=== PATIENT | male | born 1985 | race Caucasian/White ===

== ENCOUNTER 2024-01-31 17:17 | Observation (INO) ==
--- NOTE | 2024-01-31 18:01 | Emergency Department Note ---
Impression & Plan Traumatic hematoma of left lower leg, Fall from standing, Acute pain of left hip ED Provider Note HISTORY OF PRESENT ILLNESS: Patient is a 38-year-old male presenting with left hip pain. He reports that yesterday he was hiking when he slipped on some gravel and fell, landing on a large jagged rock and striking the left lateral part of his hip. He reports he was able to get up on his own and has been ambulatory since the fall. Reports he took 2 ibuprofen last night for some spasming pain. He states that about 2 hours ago while running errands, he developed acute pain of his left lateral hip. He states that he has been unable to walk in the last 2 hours or bear weight on his left hip secondary to pain. He is on Coumadin for history of factor V Leiden disorder. He denies any chest pain or shortness of breath. He did not strike his head or lose consciousness with the fall. He denies any numbness or tingling down his leg. Denies any bowel or bladder incontinence. ROS: as above PHYSICAL EXAM: Constitutional: Patient appears in no acute distress. GCS 15 HENT: Head: Normocephalic and atraumatic. Eyes: EOMI, PERRL Mouth/Throat: Mucous membranes moist. Neck: Trachea midline. Neck supple. No midline cervical spine tenderness to palpation. Cardiovascular: RRR, No murmurs, rubs or gallops. Intact distal pulses. Pulmonary/Chest: No respiratory distress. Breath sounds clear and equal bilaterally. No wheezes or rales. No chest wall tenderness to palpation. Abdominal: Abdomen soft, no tenderness, rebound or guarding. Musculoskeletal: No edema, tenderness or deformity noted. No significant ecchymosis to the pelvis. No laxity of the pelvis with palpation. Patient has reproducible tenderness to palpation of the left lateral hip. Patient is able to straight leg raise bilaterally. No open wounds or evidence of ecchymosis to the pelvis or buttock region. Skin: Warm and dry. No rash, erythema, pallor or cyanosis Psychiatric: Appropriate mood and affect for situation. Neurological: Alert and keenly responsive. CN II-XII grossly intact, moving all extremities equally and fully. MDM: - Vitals signs stable - History obtained via patient. History as above. - Chronic conditions affecting care: Factor V Leiden disorder - Differential diagnoses include, but are not limited to: Pelvic fracture; femur fracture; hematoma; retroperitoneal hematoma - Order placed for continuous cardiac monitoring. At this time, monitor showed rate of 77 bpm with normal sinus rhythm, per my interpretation. - External medical records reviewed. - Laboratory workup interpreted by myself showed normal WBC; stable hemoglobin (Hgb 13.8); elevated INR (2.3); stable electrolytes - Xray pelvis with left hip negative for acute fracture, per my interpretation. Radiology notes soft tissue swelling. - CT abdomen/pelvis with IV contrast shows acute intramuscular hematoma involving the gluteus medius and kun musculature measuring up to 20 cm in length. No active extravasation. - UA negative for infection - Given patient's anticoagulation use and large hematoma, will admit for serial hemoglobin monitoring. - Considered further CT imaging, including a CT of the chest, cervical spine and head. However, the patient is having no respiratory complaints and did not strike his head or lose consciousness. He had an isolated left hip injury that occurred over 24 hours ago. - Discussion was had with counseling case manager about patient's case and need for admission - Hospitalist, Dr. Davis, consulted for admission - Patient admitted to [facility] for further evaluation and management. ASSESSMENT AND PLAN: Diagnosis: Fall from standing; traumatic hematoma of left lower leg; acute pain of left hip Plan: Admit Past Med/Surg History Problem List (Updated 01/31/24 @ 21:50 by Marcelina Garcia MD) Acute pain of left hip (Acute) Fall from standing (Acute) Traumatic hematoma of left lower leg (Acute) Factor V Leiden Traumatic hematoma of left lower leg Dizziness (Acute) Lyme disease (Acute) Social History Smoking Status: Never smoker Preferred Language: Bengali Feels Safe at Home: Yes Allergies Allergies Allergy/AdvReac Type Severity Reaction Status Date / Time No Known Allergies Allergy Unverified 06/26/20 14:06 Home Meds Home Medications Medication Instructions Recorded Confirmed warfarin 1 mg tablet 2 mg PO WK 06/26/20 06/26/20 warfarin 4 mg tablet 4 mg PO [id number] 06/26/20 06/26/20 Previous Rx's Medication Instructions Recorded enoxaparin 120 mg/0.8 mL 120 mg (0.8 mL) subcut Q12H #16 mL 06/26/20 subcutaneous syringe (Lovenox) Results & Data (ED) Vital Signs Vital Signs - 24 hr 01/31/24 17:39 01/31/24 17:45 01/31/24 17:45 Temperature 36.8 C Temperature Source Temporal Artery Scan Pulse Rate 85 74 Pulse Rate [Apical] 68 Pulse Rate from SpO2 Sensor Pulse Rhythm [Apical] Regular Pulse Strength [Apical] Normal Respiratory Rate 18 18 18 Respiratory Effort / Characteristics Non-Labored Spontaneous Non-Labored Respiratory Depth Normal Normal Respiratory Pattern Regular Regular Blood Pressure 124/79 124/78 Blood Pressure [Right Arm] 124/78 Blood Pressure Mean 94 Blood Pressure Mean [Right Arm] 93 Blood Pressure Position [Right Arm] Pulse Oximetry 98 98 99 Oxygen Delivery Method Room Air Room Air Room Air Sepsis Recent Fever Within 48 Hours No Sepsis New/Unexplained Change in Mental Status No Sepsis Action Taken by Nursing No Action Required 01/31/24 17:45 01/31/24 18:00 01/31/24 18:00 Temperature Temperature Source Pulse Rate 71 80 Pulse Rate [Apical] Pulse Rate from SpO2 Sensor 77 Pulse Rhythm [Apical] Pulse Strength [Apical] Respiratory Rate 15 Respiratory Effort / Characteristics Respiratory Depth Respiratory Pattern Blood Pressure 124/78 Blood Pressure [Right Arm] Blood Pressure Mean 93 Blood Pressure Mean [Right Arm] Blood Pressure Position [Right Arm] Pulse Oximetry 98 Oxygen Delivery Method Room Air Sepsis Recent Fever Within 48 Hours Sepsis New/Unexplained Change in Mental Status Sepsis Action Taken by Nursing 01/31/24 18:21 01/31/24 18:27 01/31/24 18:30 Temperature Temperature Source Pulse Rate 74 71 Pulse Rate [Apical] Pulse Rate from SpO2 Sensor 73 70 Pulse Rhythm [Apical] Pulse Strength [Apical] Respiratory Rate 18 14 Respiratory Effort / Characteristics Respiratory Depth Respiratory Pattern Blood Pressure 114/80 110/74 Blood Pressure [Right Arm] Blood Pressure Mean 91 83 Blood Pressure Mean [Right Arm] Blood Pressure Position [Right Arm] Pulse Oximetry 99 99 Oxygen Delivery Method Room Air Sepsis Recent Fever Within 48 Hours Sepsis New/Unexplained Change in Mental Status Sepsis Action Taken by Nursing 01/31/24 18:39 01/31/24 19:00 01/31/24 19:26 Temperature Temperature Source Pulse Rate 67 71 71 Pulse Rate [Apical] Pulse Rate from SpO2 Sensor 67 71 Pulse Rhythm [Apical] Pulse Strength [Apical] Respiratory Rate 10 L 15 Respiratory Effort / Characteristics Respiratory Depth Respiratory Pattern Blood Pressure 125/87 Blood Pressure [Right Arm] Blood Pressure Mean 99 Blood Pressure Mean [Right Arm] Blood Pressure Position [Right Arm] Pulse Oximetry 98 99 Oxygen Delivery Method Room Air Sepsis Recent Fever Within 48 Hours Sepsis New/Unexplained Change in Mental Status Sepsis Action Taken by Nursing 01/31/24 19:30 01/31/24 20:00 01/31/24 21:00 Temperature Temperature Source Pulse Rate Pulse Rate [Apical] 69 73 71 Pulse Rate from SpO2 Sensor Pulse Rhythm [Apical] Regular Regular Regular Pulse Strength [Apical] Normal Normal Normal Respiratory Rate 18 16 18 Respiratory Effort / Characteristics Non-Labored Spontaneous Non-Labored Spontaneous Non-Labored Spontaneous Respiratory Depth Normal Normal Normal Respiratory Pattern Regular Regular Regular Blood Pressure Blood Pressure [Right Arm] 120/83 109/75 96/76 L Blood Pressure Mean Blood Pressure Mean [Right Arm] 95 86 82 Blood Pressure Position [Right Arm] Sitting Sitting Sitting Pulse Oximetry 97 97 100 Oxygen Delivery Method Room Air Room Air Room Air Sepsis Recent Fever Within 48 Hours Sepsis New/Unexplained Change in Mental Status Sepsis Action Taken by Nursing 01/31/24 21:00 Temperature Temperature Source Pulse Rate Pulse Rate [Apical] 77 Pulse Rate from SpO2 Sensor Pulse Rhythm [Apical] Regular Pulse Strength [Apical] Normal Respiratory Rate 16 Respiratory Effort / Characteristics Non-Labored Spontaneous Respiratory Depth Normal Respiratory Pattern Regular Blood Pressure Blood Pressure [Right Arm] 96/76 L Blood Pressure Mean Blood Pressure Mean [Right Arm] 82 Blood Pressure Position [Right Arm] Sitting Pulse Oximetry 100 Oxygen Delivery Method Room Air Sepsis Recent Fever Within 48 Hours Sepsis New/Unexplained Change in Mental Status Sepsis Action Taken by Nursing Laboratory Data 01/31/24 17:53 01/31/24 17:53 Lab Results 01/31/24 01/31/24 01/31/24 Range/Units 17:53 18:05 21:10 WBC 6.90 (4.8-10.8) K/ul RBC 4.35 L (4.70-6.10) M/uL Hgb 13.8 L (14.0-18.0) g/dl POC Hgb 13.6 L (14.0-18.0) g/dl Hct 38.6 L (42.0-52.0) % POC Hct 40 L (42-52) % MCV 88.7 (80.0-100.0) fL MCH 31.7 (25.0-34.0) pg MCHC 35.8 (32.0-36.0) g/dL RDW Std Deviation 36.9 (36.4-46.3) fL RDW Coeff of Murray 11.5 (11.5-14.5) % Plt Count 165 (130-400) K/uL MPV 11.1 (9.4-12.4) fL Immature Gran % (Auto) 0.3 % Neut % (Auto) 68.7 % Lymph % (Auto) 17.4 % [place] % (Auto) 10.7 % Eos % (Auto) 2.2 % Baso % (Auto) 0.7 % Neut # (Auto) 4.74 (1.40-6.50) K/uL Lymph # (Auto) 1.20 (1.20-3.40) K/uL [place] # (Auto) 0.74 H (0.11-0.59) K/uL Eos # (Auto) 0.15 (0.00-0.50) K/uL Baso # (Auto) 0.05 (0.00-0.20) K/uL Immature Gran # (Auto) 0.02 (0.01-0.20) K/uL PT 23.0 H (9.0-12.0) Seconds INR 2.3 H (0.9-1.1) POC Sodium 138 (135-144) mmol/L Sodium 136 (136-145) mmol/L POC Potassium 3.9 (3.3-5.0) mmol/L Potassium 3.9 (3.5-5.1) mmol/L POC Chloride 101 (101-112) mmol/L Chloride 102 (98-107) mmol/L Carbon Dioxide 26 (21-32) mmol/L POC Total CO2 24 (24-31) mmol/L Anion Gap 8 (3-11) POC Anion Gap 18.0 (16-25) mmol/L POC BUN 11 (7-18) mg/dl BUN 12 (6-23) mg/dl Creatinine 0.83 (0.6-1.4) mg/dl POC Creatinine 0.9 (0.6-1.3) mg/dl Est Cr Clr Drug Dosing 162.4 ml/min Est GFR ( Amer) 131.2 ml/min Est GFR (Non-Af Amer) 113.2 ml/min BUN/Creatinine Ratio 14.5 (10-20) Glucose 110 H (70-99(Fasting)) mg/dl POC Glucose (other) 108 H (70-99) mg/dl Calcium 9.0 (8.6-10.3) mg/dl POC Ioniz Calcium Frank 1.20 (1.12-1.32) mmol/l Total Bilirubin 0.7 (0.2-1.0) mg/dl AST 32 (13-39) U/L ALT 40 (7-52) U/L Alkaline Phosphatase 47 (34-104) U/L Total Protein 7.3 (6.0-8.3) gm/dl Albumin 4.4 (3.4-5.0) gm/dl Globulin 2.9 (2.5-4.0) gm/dl Albumin/Globulin Ratio 1.5 (0.9-2) Urine Color Yellow Urine Appearance Clear (Clear) Urine pH 7.0 (4.5-7.5) Ur Specific [place] 1.031 H (1.000-1.030) Urine Protein Negative (Negative) Urine Glucose (UA) Negative (Negative) Urine Ketones 1+ H (Negative) Urine Blood Negative (Negative) Urine Nitrite Negative (Negative) Urine Bilirubin Negative (Negative) Urine Urobilinogen Negative (Negative) Ur Leukocyte Esterase Negative (Negative) Administered Medications Discontinued Medications Ioversol (Optiray 320 100ml) 90 ml IV ONCE ONE Stop: 01/31/24 18:14 Last Admin: 01/31/24 18:13 Dose: 90 ml Documented By: CLARK Imaging Data Radiologist's Impression: Abdomen/Pelvis CT 01/31/24 17:[address] WITH IV CONTRAST CT DOSE: 1700.85 mGy.cm HISTORY: Acute left hip pain status post fall L hip pain s/p fall; on coumadin TECHNIQUE: Multiaxial CT images of the abdomen and pelvis were performed following the IV administration of 90 cc of Optiray, A dose lowering technique was utilized adhering to the principles of ALARA. COMPARISON STUDY: Pelvis and hip radiographs of same day FINDINGS: The lung bases are clear. Small calcified granuloma of the basal right lower lobe. The liver, spleen, gallbladder, pancreas, kidneys, and adrenal glands are within normal limits. No bowel wall thickening or obstruction. Small fat filled umbilical hernia. Normal appendix. Probable calcifications of the prostate. The urinary bladder wall thickening with partial distention. No acute fracture. There is an acute intramuscular hematoma within the left iliacus medius and kun musculature with ill-defined margins measuring up to approximately 20 cm in length. No evidence of active extravasation. IMPRESSION: 1. Acute intramuscular hematoma involves the gluteus medius and kun musculature measuring up to approximately 20 cm in length. No evidence of active extravasation on this phase of imaging. 2. No acute fracture or evidence of acute solid organ injury. ACT 112: Negative or not required by law. The above report was generated using voice recognition software. It may contain grammatical, syntax or spelling errors. Electronically signed by: Khoa Fofana M.D. 01/31/2024 7:20 PM Hip/Pelvis X-Ray 01/31/24 17:58 XR hip LT 2V w pelvis HISTORY: 38 years-old Male L hip pain s/p fall; trauma acute left hip pain status post fall COMPARISON: CT of same day TECHNIQUE: AP view of the pelvis with 2 views of the left hip FINDINGS: No acute fracture, dislocation or avascular necrosis. Soft tissue swelling of the lateral tissues. IMPRESSION: Soft tissue swelling without acute fracture or dislocation. ACT 112: Negative or not required by law. The above report was generated using voice recognition software. It may contain grammatical, syntax or spelling errors. Electronically signed by: Khoa Fofana M.D. 01/31/2024 6:28 PM Discharge Plan Visit Data Chief Complaint: Trauma Stated Complaint: FALL, LT HIP, IMMFLAMATION ED Provider: Marcelina Garcia Discharge Problem: Traumatic hematoma of left lower leg, Fall from standing, Acute pain of left hip Forms Stand Alone Forms: [facility] [employer] Prescriptions Prescriptions: No Action warfarin 4 mg tablet 4 mg PO [id number] warfarin 1 mg tablet 2 mg PO WK Rx Instructions: Take 2 tabs on in addition to the 4mg tablet enoxaparin [Lovenox] 120 mg/0.8 mL syringe 120 mg subcut Q12H Qty: 16 0RF Referrals Referrals: Dillan Bae MD [Primary Care Provider] -
[2024-01-31] MEDS: OPTIRAY 320 100ml IV ONE (18:13)
[2024-01-31 18:18] LABS: iSTAT Creatinine 0.9 mg/dl (0.6-1.3); iSTAT Hemoglobin 13.6 g/dl (14.0-18.0); iSTAT Ionized Calcium 1.2 mmol/l (1.12-1.32); iSTAT Potassium 3.9 mmol/L (3.3-5.0)
[2024-01-31 18:24] LABS: Basophils # (auto) 0.05 K/uL (0.00-0.20); Basophils % (auto) 0.7 %; Eosinophils # (auto) 0.15 K/uL (0.00-0.50); Eosinophils % (auto) 2.2 %; Hematocrit (blood only) 38.6 % (42.0-52.0); Hemoglobin 13.8 g/dl (14.0-18.0); Immature Granulocytes # (auto) 0.02 K/uL (0.01-0.20); Immature Granulocytes % (auto) 0.3 %; Lymphocytes % (auto) 17.4 %; Mean Corpuscular Hemoglobin 31.7 pg (25.0-34.0); Mean Corpuscular Hgb Conc 35.8 g/dL (32.0-36.0); Mean Corpuscular Volume 88.7 fL (80.0-100.0); Mean Platelet Volume 11.1 fL (9.4-12.4); Monocytes # (auto) 0.74 K/uL (0.11-0.59); Monocytes % (auto) 10.7 %; Neutrophils # (auto) 4.74 K/uL (1.40-6.50); Neutrophils % (auto) 68.7 %; Platelet Count 165 K/uL (130-400); RDW Coefficient of Variation 11.5 % (11.5-14.5); RDW Standard Deviation 36.9 fL (36.4-46.3); Red Blood Count 4.35 M/uL (4.70-6.10)
--- NOTE | 2024-01-31 18:29 | XRay Report ---
XR hip LT 2V w pelvis HISTORY: 38 years-old Male L hip pain s/p fall; trauma acute left hip pain status post fall COMPARISON: CT of same day TECHNIQUE: AP view of the pelvis with 2 views of the left hip FINDINGS: No acute fracture, dislocation or avascular necrosis. Soft tissue swelling of the lateral tissues. IMPRESSION: Soft tissue swelling without acute fracture or dislocation. ACT 112: Negative or not required by law. The above report was generated using voice recognition software. It may contain grammatical, syntax o r spelling errors. Electronically signed by: Khoa Fofana M.D. 01/31/2024 6:28 PM
[2024-01-31 18:36] LABS: Albumin Globulin Ratio 1.5 (0.9-2); Albumin Level 4.4 gm/dl (3.4-5.0); BUN Creatinine Ratio 14.5 (10-20); Bilirubin,Total 0.7 mg/dl (0.2-1.0); Creatinine Clr Calc Pharmacy 162.4 ml/min; Est GFR (African American) 131.2 ml/min; Est GFR (Non-African American) 113.2 ml/min; Globulin 2.9 gm/dl (2.5-4.0); Potassium 3.9 mmol/L (3.5-5.1); Total Protein 7.3 gm/dl (6.0-8.3)
[2024-01-31 18:45] LABS: INR 2.3 (0.9-1.1)
--- NOTE | 2024-01-31 19:22 | CT Scan Report ---
ABDOMEN AND PELVIS CT WITH IV CONTRAST CT DOSE: 1700.85 mGy.cm HISTORY: Acute left hip pain status post fall L hip pain s/p fall; on coumadin TECHNIQUE: Multiaxial CT images of the abdomen and pelvis were performed following the IV administrat ion of 90 cc of Optiray, A dose lowering technique was utilized adhering to the principles of ALARA. COMPARISON STUDY: Pelvis and hip radiographs of same day FINDINGS: The lung bases are clear. Small calcified granuloma of the basal right lower lobe. The live r, spleen, gallbladder, pancreas, kidneys, and adrenal glands are within normal limits. No bowel wall thickening or obstruction. Small fat filled umbilical hernia. Normal appendix. Probable calcificatio ns of the prostate. The urinary bladder wall thickening with partial distention. No acute fracture. T here is an acute intramuscular hematoma within the left iliacus medius and kun musculature with i ll-defined margins measuring up to approximately 20 cm in length. No evidence of active extravasation . IMPRESSION: 1. Acute intramuscular hematoma involves the gluteus medius and kun musculature measuring up to a pproximately 20 cm in length. No evidence of active extravasation on this phase of imaging. 2. No acute fracture or evidence of acute solid organ injury. ACT 112: Negative or not required by law. The above report was generated using voice recognition software. It may contain grammatical, syntax o r spelling errors. Electronically signed by: Khoa Fofana M.D. 01/31/2024 7:20 PM
--- NOTE | 2024-01-31 21:13 | History & Physical Report ---
Date of Service January 31, 2024 Assessment & Plan (1) Traumatic hematoma of left lower leg: Plan: Admit to med/tele Currently stable nontoxic-appearing Presented to the ED due to progressive pain and amatory dysfunction of the left lower extremity after falling on his left hip during a hike on 01/30/2024. No acute fractures noted on x-ray of the pelvis or CT of the abdomen/pelvis with IV contrast Patient was noted to have an acute intramuscular hematoma involving the gluteus medius and kun musculature measuring up to approximately 20 cm in length was without signs of active extravasation We were asked to admit for observation as the patient is on warfarin for his history of factor V Leiden and multiple previous DVT/PEs Hemoglobin is currently 13, blood consent has been obtained and will order type/screen Will monitor CBC every 6 hours overnight INR currently 2.3, we will hold off on warfarin reversal at this time due to patient's significant history of clotting and current stability If any significantly worsening symptoms or concerns for progression of hematoma will rescan the area overnight Will consult orthopedics the following case hematoma evacuation would be requiring Bilateral SCDs for DVT prophylaxis for now Regular diet A.m. CMP, mag, PT/INR with (2) Factor V Leiden: Plan: Hold warfarin for now Would restart anticoagulation DAQUAN once patient is safe from a bleeding perspective Plan The patient was discussed with Dr. Davis at time of admission History of Present Illness Chief Complaint: Fall, left hip pain/swelling Primary Care Provider: Dillan Bae MD Dillan is a 38-year-old male with a past medical history significant for factor V Leiden with a history of previous DVT/PE now on warfarin who presented to [facility] ED on 01/31/2024 due to left hip pain/swelling and ambulatory dysfunction after falling onto his left hip on 01/30/2024. Patient reportedly was hiking on 01/30/2024 and reportedly fell landing his left hip onto a [place]. He reportedly felt fine after the incident and had been able to ambulate without issue. He was walking earlier today while completing some errands when he had acute onset of left hip pain and ambulatory dysfunction. Patient remained stable in the ED. Labs were significant for hemoglobin of 13.8 (down from 16 as of 06/26/2020), INR of 2.3. X-ray of the left hip/pelvis noted soft tissue swelling but no acute trauma. CT of the abdomen pelvis with IV contrast was read as an acute intramuscular hematoma involving the gluteus medius and kun musculature measuring up to approximately 20 cm in length. No evidence of active extravasation. No acute fracture or evidence of acute solid organ injury. Patient was sitting in bed in no acute distress at time of exam. Confirms the above history. States that his first DVT and PE were approximately 12 years ago in the right lower extremity. States that it was an extensive DVT requiring Venojet procedure with Dr. Fritz. Patient was given a trial off anticoagulation after his initial blood clots were treated and he had recurrent DVT within the first week off anticoagulation. States that he took a dose of ibuprofen last night before going to bed. Last dose of warfarin was last evening. States his pain got acutely worse this afternoon while ambulating. Denies numbness, tingling, or pallor of left lower extremity. Pain is currently controlled. Please refer to Dr. Davis's attestation for any changes to the treatment plan Allergies Allergy/AdvReac Type Severity Reaction Status Date / Time No Known Allergies Allergy Unverified 06/26/20 14:06 Home Medications Medication Instructions Recorded Confirmed Type warfarin 5 mg tablet 5 mg PO [id number] 01/31/24 01/31/24 History Past Med/Surg History Problem List Acute pain of left hip (Acute) Fall from standing (Acute) Traumatic hematoma of left lower leg (Acute) Factor V Leiden Traumatic hematoma of left lower leg Dizziness (Acute) Lyme disease (Acute) Social History Smoking Status: Never smoker Second Hand Exposure: No; Hx Alcohol Use: Yes Hx Substance Use: No Preferred Language: Guyanese Communication Ability: Effective Property Technician Required: No Beliefs That Will Affect Care: None Current Living Situation: Family Current Living Situation Comment: lives with brother Other Information That Helps Us Care for You: No Feels Safe at Home: Yes Safety Concerns: Feels Safe At This Time Assistive Devices: Glasses Review of Systems Review of Systems: All systems reviewed & are unremarkable except as noted in HPI & below Physical Exam Physical Exam: Physical Exam: General: In no acute distress, stated age, well-nourished, good hygiene HEENT: Normocephalic, atraumatic, no scleral icterus, pupils around round, symmetrical, and reactive to light, moist mucus membranes, trachea midline, no thyromegaly Chest/Pulm: No respiratory distress, symmetrical chest expansion, clear breath sounds throughout Cardiac: RRR, no murmurs noted Abdomen: Negative for ascites and bruising, normoactive bowel sounds, soft, non-tender to palpation throughout Musculoskeletal: No acute trauma or acute bruising on inspection and palpation of the bilateral lower extremities. Patient is significantly tender on palpation of the left posterior lower extremity and buttocks. Extremities: Radial, dorsalis pedis, and posterior tibial pulses are intact and symmetrical, no edema noted in the BL LE's Skin: Patient currently without signs of bruising on inspection of the of the posterior left lower extremity and buttocks Neuro: Alert and oriented to person, place, month, year, and president, no focal defects, Intact and symmetrical sensation in the bilateral lower extremities no tremors noted Psych: No acute distress, calm and cooperative during the exam Results & Data Results & Data Vital Signs (Past 12 Hours) Vital Signs Temp Pulse Pulse Resp BP BP Pulse Ox 01/31/24 20:00 73 16 109/75 97 01/31/24 19:30 69 18 120/83 97 01/31/24 19:26 71 01/31/24 19:00 71 15 125/87 99 01/31/24 18:39 67 10 L 98 01/31/24 18:30 110/74 01/31/24 18:27 71 14 99 01/31/24 18:21 74 18 114/80 99 01/31/24 18:00 80 15 124/78 98 01/31/24 18:00 71 01/31/24 17:45 01/31/24 17:45 68 18 124/78 99 01/31/24 17:45 74 18 124/78 98 01/31/24 17:39 36.8 C 85 18 124/79 98 O2 Del Method 01/31/24 20:00 Room Air 01/31/24 19:30 Room Air 01/31/24 19:26 01/31/24 19:00 Room Air 01/31/24 18:39 01/31/24 18:30 01/31/24 18:27 01/31/24 18:21 Room Air 01/31/24 18:00 01/31/24 18:00 01/31/24 17:45 Room Air 01/31/24 17:45 Room Air 01/31/24 17:45 Room Air 01/31/24 17:39 Room Air Laboratory Results Abnormal lab results 01/31/24 01/31/24 01/31/24 Range/Units 17:53 18:05 21:10 RBC 4.35 L (4.70-6.10) M/uL Hgb 13.8 L (14.0-18.0) g/dl POC Hgb 13.6 L (14.0-18.0) g/dl Hct 38.6 L (42.0-52.0) % POC Hct 40 L (42-52) % [place] # (Auto) 0.74 H (0.11-0.59) K/uL PT 23.0 H (9.0-12.0) Seconds INR 2.3 H (0.9-1.1) Glucose 110 H (70-99(Fasting)) mg/dl POC Glucose (other) 108 H (70-99) mg/dl Ur Specific [place] 1.031 H (1.000-1.030) Urine Ketones 1+ H (Negative) Diagnostic Findings Abdomen/Pelvis CT 01/31/24 17:[address] WITH IV CONTRAST CT DOSE: 1700.85 mGy.cm HISTORY: Acute left hip pain status post fall L hip pain s/p fall; on coumadin TECHNIQUE: Multiaxial CT images of the abdomen and pelvis were performed following the IV administration of 90 cc of Optiray, A dose lowering technique was utilized adhering to the principles of ALARA. COMPARISON STUDY: Pelvis and hip radiographs of same day FINDINGS: The lung bases are clear. Small calcified granuloma of the basal right lower lobe. The liver, spleen, gallbladder, pancreas, kidneys, and adrenal glands are within normal limits. No bowel wall thickening or obstruction. Small fat filled umbilical hernia. Normal appendix. Probable calcifications of the prostate. The urinary bladder wall thickening with partial distention. No acute fracture. There is an acute intramuscular hematoma within the left iliacus medius and kun musculature with ill-defined margins measuring up to approximately 20 cm in length. No evidence of active extravasation. IMPRESSION: 1. Acute intramuscular hematoma involves the gluteus medius and kun musculature measuring up to approximately 20 cm in length. No evidence of active extravasation on this phase of imaging. 2. No acute fracture or evidence of acute solid organ injury. ACT 112: Negative or not required by law. The above report was generated using voice recognition software. It may contain grammatical, syntax or spelling errors. Electronically signed by: Khoa Fofana M.D. 01/31/2024 7:20 PM Hip/Pelvis X-Ray 01/31/24 17:58 XR hip LT 2V w pelvis HISTORY: 38 years-old Male L hip pain s/p fall; trauma acute left hip pain status post fall COMPARISON: CT of same day TECHNIQUE: AP view of the pelvis with 2 views of the left hip FINDINGS: No acute fracture, dislocation or avascular necrosis. Soft tissue swelling of the lateral tissues. IMPRESSION: Soft tissue swelling without acute fracture or dislocation. ACT 112: Negative or not required by law. The above report was generated using voice recognition software. It may contain grammatical, syntax or spelling errors. Electronically signed by: Khoa Fofana M.D. 01/31/2024 6:28 PM Code Status & VTE Plan Code Status Full code VTE Prophylaxis Plan VTE Prophylaxis will be ordered: Yes Supervising Physician Co-Signing Physician Notes Patient seen and examined, chart reviewed, case discussed with ROGELIO Boucher and I agree with the assessment and plan as above. In brief, patient presenting with acute intramuscular hematoma of the left buttock following a ground level fall while hiking. Patient is on Coumadin for history of Factor V Leiden with recurrent VTE. INR=2.3 Patient is afebrile, HD stable and non-toxic in appearance Skin -small superficial bruise on left hip. No palpable hematoma on exam HEENT - MMM, Neck supple Heart - +S1/S2, regular, no m/r/g Lungs - CTA Abd - soft, NT/ND Labs and images reviewed Assessment/plan - acute intramuscular hematoma in patient on Coumadin anticoagulation. No active extravasation noted on imaging. -Will hold Coumadin -Trend H/H -Ortho consultation appreciated for possible drainage -Remainder as above PG Care Time/CCT Total # of Minutes Spent Total Time Spent with Patient: Total time spent is greater than 50% in coordination of care (as documented) at patient's floor/unit and/or counseling patient: [place] [address] INT INP/OBS CARE MIN Patient Type New Medical Decision Making High Complexity Diagnoses Traumatic hematoma of left lower leg S80.12XA Factor V Leiden D68.51
[2024-01-31 21:20] LABS: Appearance Urine Clear (Clear); Bilirubin Urine Negative (Negative); Blood Urine Negative (Negative); Color Urine Yellow; Glucose Urine UA Negative (Negative); Ketones Urine 1+ (Negative); Leukocyte Esterase Urine Negative (Negative); Nitrite Urine Negative (Negative); Protein Urine Negative (Negative); Specific Gravity Urine 1.031 (1.000-1.030); Urobilinogen Urine Negative (Negative)
[2024-01-31] MEDS ORDERED: ACETAMINOPHEN 325 MG TAB PO PRN (21:30)
--- OUTSIDE RECORDS SUMMARY | 2024-01-31 23:12 | External Medical Summary | Continuity of Care Document ---
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) - 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) - Discharge Disposition: Home or Self Care Attending Physician: MD García Mark B Referring Physician: MD García Mark B Allergies, Adverse Reactions, Alerts No Known Allergies Immunizations Given and Recorded Vaccine Date Status Refusal Reason tetanus/diphtheria/pertuss, acel (Tdap) 04/03/22 G iven yellow fever vaccine 10/10/18 Given typhoid vaccine, live 09/02/18 Recorded hepatitis A adult vaccine 09/02/18 Recorded tetanus toxoids-diphtheria, Td (Adult) 12/21/09 Re corded tetanus toxoids-diphtheria, Td (Adult) 12/22/02 Re corded hepatitis B pediatric vaccine 08/25/98 Recorded hepatitis B pediatric vaccine 06/01/97 Recorded hepatitis B pediatric vaccine 04/25/97 Recorded diphtheria/tetanus/pertuss, acel (DTaP) 02/16/92 R ecorded diphtheria/tetanus/pertuss, acel (DTaP) 07/29/90 R ecorded diphtheria/tetanus/pertuss, acel (DTaP) 01/22/89 R ecorded diphtheria/tetanus/pertuss, acel (DTaP) 07/24/88 R ecorded diphtheria/tetanus/pertuss, acel (DTaP) 05/01/88 R ecorded poliovirus vaccine, inactivated 02/16/92 Recorded poliovirus vaccine, inactivated 02/25/90 Recorded poliovirus vaccine, inactivated 07/24/88 Recorded poliovirus vaccine, inactivated 05/01/88 Recorded measles/mumps/rubella virus vaccine 01/16/92 Recor ded measles/mumps/rubella virus vaccine 01/22/89 Recor ded haemophilus b conj (PRP-OMP) vaccine 02/25/90 Enrico rded Medications warfarin 5 mg oral tablet Start: 06/06/23 10:16:00 AM EST, See Instructions, Disp# 100 tab, Refills: 10, 1 tab 6 days a week, and 1.5 tabs one day a week., Pharmacy: [id number] Start Date: 06/06/23 Status: Ordered Problem List Condition Confirmation Course Effective Dates Status H ealth Status Informant Anticoagulated on warfarin Confirmed Active Anticoagulation goal of INR 2 to 3 Confirmed Active Tinea Confirmed Active Dull chest pain Confirmed Active Factor V deficiency Confirmed Active History of DVT (deep vein thrombosis) Confirmed Active History of pulmonary embolism Confirmed Active Calf pain Confirmed Active Encounter for counseling for travel Confirmed Active Prothrombin [id number] mutation Confirmed Active Weight disorder Confirmed Active Procedures Procedure Date Related Diagnosis Body Site Status Plain X-ray of left wrist 1 04/03/22 Completed Chest x-ray 2 12/04/17 Completed Jaw surgery Completed 1Impression: 1. No acute bony abnormality is identified. 2. Negative ulnar variance with degenerative change at this distal radioulnar joint. 2no active disease in the chest Results Laboratory List Name Date Prothrombin Time w/ INR (PROTIME WITH IN R) 01/03/24 Request to FAX Report (First Location) ( ACC NO TO BE FAXED) 01/03/24 Most recent to oldest [Reference Range]: 1 Phone No [phone] (01/03/24 3:10 PM) Faxed on: 01/04/24 08:17 (01/03/24 3:10 PM) INR [0.9-1.1] 2.4 2 *HI* (01/03/24 3:10 PM) PT [12.0-14.2 seconds] 26.1 seconds *HI* (01/03/24 3:10 PM) 1Result Comment: Testing Performed By: Dept of Pathology [facility] [address] [place] [address] 2Result Comment: Suggested therapeutic range for low-intensity Coumadin therapy for venous thromboembolism is INR 2.0-3.0 (ex: atrial fibrillation, history of TIA/stroke). For high risk patients, the suggested therapeutic range is INR 2.5-3.5 (ex: mechanical prosthetic valves). Testing Performed By: Dept of Pathology [facility], [address] [place] [address] Social History Social History Type Response Smoking Status Never smoked cigaret martha Sex Male Sex Representation Male (finding) Patient Care team information Care Team Personnel Name: MICHAEL Villagomez Tara Position: Nurse Pract - Family Med Member Role: Lifetime Relationship Address: [address] [place] [id number] [place] Name: Dina Burrows Amy Position: Pharmacist Schedule II Member Role: Pharmacy - Lifetime Address: [facility] [address] [place] [address] [place] Name: Dina Alejandra Todd Position: Pharmacist Schedule II Member Role: Pharmacy - Lifetime Address: [address] [place] [id number] [place] Name: Dina Wise Francis Position: Pharmacist Schedule II Member Role: Pharmacy - Lifetime Address: [facility] [address] [place] [address] [place] Name: Dina Kowalski Paul T Position: Pharmacist Schedule II Member Role: Pharmacy - Lifetime Address: [facility] [address] [place] [address] [place] Care Team Related Persons Name: CE HERNÁNDEZ
[2024-02-01 00:42] LABS: Hematocrit (blood only) 35.7 % (42.0-52.0); Hemoglobin 12.5 g/dl (14.0-18.0); Mean Corpuscular Hemoglobin 31.3 pg (25.0-34.0); Mean Corpuscular Volume 89.5 fL (80.0-100.0); Mean Platelet Volume 11.2 fL (9.4-12.4); Platelet Count 163 K/uL (130-400); RDW Coefficient of Variation 11.5 % (11.5-14.5); RDW Standard Deviation 37.2 fL (36.4-46.3); Red Blood Count 3.99 M/uL (4.70-6.10)
[2024-02-01 08:31] LABS: Albumin Globulin Ratio 1.4 (0.9-2); Albumin Level 3.9 gm/dl (3.4-5.0); BUN Creatinine Ratio 9.9 (10-20); Bilirubin,Total 0.7 mg/dl (0.2-1.0); Calcium 8.3 mg/dl (8.6-10.3); Creatinine Clr Calc Pharmacy 168.1 ml/min; Est GFR (African American) 132.5 ml/min; Est GFR (Non-African American) 114.3 ml/min; Globulin 2.8 gm/dl (2.5-4.0); Magnesium 1.9 mg/dl (1.7-2.4); Potassium 4.1 mmol/L (3.5-5.1); Total Protein 6.7 gm/dl (6.0-8.3)
[2024-02-01 08:38] LABS: Hematocrit (blood only) 34.6 % (42.0-52.0); Hemoglobin 12.4 g/dl (14.0-18.0); Mean Corpuscular Hgb Conc 35.8 g/dL (32.0-36.0); Mean Corpuscular Volume 89.4 fL (80.0-100.0); Mean Platelet Volume 11.6 fL (9.4-12.4); Platelet Count 168 K/uL (130-400); RDW Coefficient of Variation 11.6 % (11.5-14.5); RDW Standard Deviation 37.4 fL (36.4-46.3); Red Blood Count 3.87 M/uL (4.70-6.10); White Blood Count 6.93 K/ul (4.8-10.8)
[2024-02-01 08:46] LABS: INR 2.2 (0.9-1.1); Prothrombin Time 22.6 Seconds (9.0-12.0)
--- NOTE | 2024-02-01 10:39 | Orthopedic Consultation ---
Date of Consultation February 01, 2024 Assessment & Plan (1) Traumatic hematoma of left lower leg: Weightbearing as tolerated Ice to the easy wrap Hold Coumadin for the next 3 days Pain control with p.o. medication Elevate left lower extremity when nonambulatory Will treat this hematoma conservatively Patient will need a 2-week follow-up in our clinic With questions contact [facility] orthopedics at [phone] Supervising Physician Co-Signing Physician Notes I saw and examined the patient, reviewed his imaging studies, formulated the above plan and performed the substantive portion of the visit. Agree with above note. Needs to hold coumadin for at least 3 days to decrease risk of hematoma enlarging. Ice and tylenol for pain. WBAT. Follow-up with PA in 2 weeks. 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 Patient reportedly was hiking on 01/30/2024 and reportedly fell landing his left hip onto a [place]. He reportedly felt fine after the incident and had been able to ambulate without issue. He was walking earlier today while completing some errands when he had acute onset of left hip pain and ambulatory dysfunction. Patient remained stable in the ED. Labs were significant for hemoglobin of 13.8 (down from 16 as of 06/26/2020), INR of 2.3. X-ray of the left hip/pelvis noted soft tissue swelling but no acute trauma. CT of the abdomen pelvis with IV contrast was read as an acute intramuscular hematoma involving the gluteus medius and kun musculature measuring up to approximately 20 cm in length. No evidence of active extravasation. No acute fracture or evidence of acute solid organ injury. Patient was sitting in bed in no acute distress at time of exam. Confirms the above history. States that his first DVT and PE were approximately 12 years ago in the right lower extremity. States that it was an extensive DVT requiring Venojet procedure with Dr. Simoni. Patient was given a trial off anticoagulation after his initial blood clots were treated and he had recurrent DVT within the first week off anticoagulation. States that he took a dose of ibuprofen last night before going to bed. Last dose of warfarin was last eveni ng. States his pain got acutely worse this afternoon while ambulating. Denies numbness, tingling, or pallor of left lower extremity. Pain is currently controlled. Allergies Allergy/AdvReac Type Severity Reaction Status Date / Time No Known Allergies Allergy Unverified 06/26/20 14:06 Home Medications Medication Instructions Recorded Confirmed Type warfarin 5 mg tablet 5 mg PO 6XWK 01/31/24 01/31/24 History Patient History Social History Smoking Status: Never smoker Second Hand Exposure: No; Hx Alcohol Use: Yes Hx Substance Use: No Preferred Language: Kosovan Communication Ability: Effective Vba Programmer Required: No Beliefs That Will Affect Care: None Current Living Situation: Family Current Living Situation Comment: lives with brother Other Information That Helps Us Care for You: No Feels Safe at Home: Yes Safety Concerns: Feels Safe At This Time Assistive Devices: Glasses Review of Systems Review of Systems: All systems reviewed & are unremarkable except as noted in Subjective Physical Exam Physical Exam: Left lower extremity: Patient has visible edema over the left buttocks with palpable softness and tenderness to palpation. He is able to perform active straight leg raise test. He is able to actively dorsi and plantarflex his foot. He is able to actively flex his hip to 90 degrees without significant discomfort. He has no pain with external rotation to 50 degrees but does feel some tension over the posterior hip with internal rotation to 15 degrees. His peripheral pulses are 2+. His capillary fill is less than 2 seconds. His calf is soft and supple nontender to palpation. He is neurovascularly intact in the left lower extremity. Results & Data Vital Signs (Past 12 Hours) Vital Signs Temp Pulse Pulse Pulse Resp BP Pulse Ox 02/01/24 07:29 37.1 C 74 18 108/74 97 02/01/24 07:11 71 02/01/24 04:18 36.8 C 71 16 113/79 97 02/01/24 00:06 76 02/01/24 00:05 37.5 C 80 16 117/78 97 01/31/24 23:00 81 18 111/79 98 O2 Del Method 02/01/24 07:29 Room Air 02/01/24 07:11 02/01/24 04:18 Room Air 02/01/24 00:06 02/01/24 00:05 Room Air 01/31/24 23:00 Room Air Diagnostic Findings Laboratory Results WBC 6.93 K/ul (4.8-10.8) 02/01/24 07:50 RBC 3.87 M/uL (4.70-6.10) L 02/01/24 07:50 Hgb 12.4 g/dl (14.0-18.0) L 02/01/24 07:50 POC Hgb 13.6 g/dl (14.0-18.0) L 01/31/24 18:05 Hct 34.6 % (42.0-52.0) L 02/01/24 07:50 POC Hct 40 % (42-52) L 01/31/24 18:05 MCV 89.4 fL (80.0-100.0) 02/01/24 07:50 MCH 32.0 pg (25.0-34.0) 02/01/24 07:50 MCHC 35.8 g/dL (32.0-36.0) 02/01/24 07:50 RDW Std Deviation 37.4 fL (36.4-46.3) 02/01/24 07:50 RDW Coeff of Murray 11.6 % (11.5-14.5) 02/01/24 07:50 Plt Count 168 K/uL (130-400) 02/01/24 07:50 MPV 11.6 fL (9.4-12.4) 02/01/24 07:50 Immature Gran % (Auto) 0.3 % 01/31/24 17:53 Neut % (Auto) 68.7 % 01/31/24 17:53 Lymph % (Auto) 17.4 % 01/31/24 17:53 Canadian % (Auto) 10.7 % 01/31/24 17:53 Eos % (Auto) 2.2 % 01/31/24 17:53 Baso % (Auto) 0.7 % 01/31/24 17:53 Neut # (Auto) 4.74 K/uL (1.40-6.50) 01/31/24 17:53 Lymph # (Auto) 1.20 K/uL (1.20-3.40) 01/31/24 17:53 Canadian # (Auto) 0.74 K/uL (0.11-0.59) H 01/31/24 17:53 Eos # (Auto) 0.15 K/uL (0.00-0.50) 01/31/24 17:53 Baso # (Auto) 0.05 K/uL (0.00-0.20) 01/31/24 17:53 Immature Gran # (Auto) 0.02 K/uL (0.01-0.20) 01/31/24 17:53 PT 22.6 Seconds (9.0-12.0) H 02/01/24 07:50 INR 2.2 (0.9-1.1) H 02/01/24 07:50 POC Sodium 138 mmol/L (135-144) 01/31/24 18:05 Sodium 135 mmol/L (136-145) L 02/01/24 07:50 POC Potassium 3.9 mmol/L (3.3-5.0) 01/31/24 18:05 Potassium 4.1 mmol/L (3.5-5.1) 02/01/24 07:50 POC Chloride 101 mmol/L (101-112) 01/31/24 18:05 Chloride 103 mmol/L (98-107) 02/01/24 07:50 Carbon Dioxide 27 mmol/L (21-32) 02/01/24 07:50 POC Total CO2 24 mmol/L (24-31) 01/31/24 18:05 Anion Gap 5 (3-11) 02/01/24 07:50 POC Anion Gap 18.0 mmol/L (16-25) 01/31/24 18:05 POC BUN 11 mg/dl (7-18) 01/31/24 18:05 BUN 8 mg/dl (6-23) 02/01/24 07:50 Creatinine 0.81 mg/dl (0.6-1.4) 02/01/24 07:50 POC Creatinine 0.9 mg/dl (0.6-1.3) 01/31/24 18:05 Est Cr Clr Drug Dosing 168.1 ml/min 02/01/24 07:50 Est GFR ( Amer) 132.5 ml/min 02/01/24 07:50 Est GFR (Non-Af Amer) 114.3 ml/min 02/01/24 07:50 BUN/Creatinine Ratio 9.9 (10-20) L 02/01/24 07:50 Glucose 133 mg/dl (70-99(Fasting)) H 02/01/24 07:50 POC Glucose (other) 108 mg/dl (70-99) H 01/31/24 18:05 Calcium 8.3 mg/dl (8.6-10.3) L 02/01/24 07:50 POC Ioniz Calcium Frank 1.20 mmol/l (1.12-1.32) 01/31/24 18:05 Magnesium 1.9 mg/dl (1.7-2.4) 02/01/24 07:50 Total Bilirubin 0.7 mg/dl (0.2-1.0) 02/01/24 07:50 AST 25 U/L (13-39) 02/01/24 07:50 ALT 32 U/L (7-52) 02/01/24 07:50 Alkaline Phosphatase 41 U/L (34-104) 02/01/24 07:50 Total Protein 6.7 gm/dl (6.0-8.3) 02/01/24 07:50 Albumin 3.9 gm/dl (3.4-5.0) 02/01/24 07:50 Globulin 2.8 gm/dl (2.5-4.0) 02/01/24 07:50 Albumin/Globulin Ratio 1.4 (0.9-2) 02/01/24 07:50 Urine Color Yellow 01/31/24 21:10 Urine Appearance Clear (Clear) 01/31/24 21:10 Urine pH 7.0 (4.5-7.5) 01/31/24 21:10 Ur Specific [place] 1.031 (1.000-1.030) H 01/31/24 21:10 Urine Protein Negative (Negative) 01/31/24 21:10 Urine Glucose (UA) Negative (Negative) 01/31/24 21:10 Urine Ketones 1+ (Negative) H 01/31/24 21:10 Urine Blood Negative (Negative) 01/31/24 21:10 Urine Nitrite Negative (Negative) 01/31/24 21:10 Urine Bilirubin Negative (Negative) 01/31/24 21:10 Urine Urobilinogen Negative (Negative) 01/31/24 21:10 Ur Leukocyte Esterase Negative (Negative) 01/31/24 21:10 Blood Type A Positive 01/31/24 17:53 Antibody Screen NEGATIVE 01/31/24 17:53 Impressions Abdomen/Pelvis CT 01/31/24 17:[address] WITH IV CONTRAST CT DOSE: 1700.85 mGy.cm HISTORY: Acute left hip pain status post fall L hip pain s/p fall; on coumadin TECHNIQUE: Multiaxial CT images of the abdomen and pelvis were performed follo wing the IV administration of 90 cc of Optiray, A dose lowering technique was utilized adhering to the principles of ALARA. COMPARISON STUDY: Pelvis and hip radiographs of same day FINDINGS: The lung bases are clear. Small calcified granuloma of the basal right lower lobe. The liver, spleen, gallbladder, pancreas, kidneys, and adrenal glands are within normal limits. No bowel wall thickening or obstruction. Small fat filled umbilical hernia. Normal appendix. Probable calcifications of the prostate. The urinary bladder wall thickening with partial distention. No acute fracture. There is an acute intramuscular hematoma within the left iliacus medius and kun musculature with ill-defined margins measuring up to approximately 20 cm in length. No evidence of active extravasation. IMPRESSION: 1. Acute intramuscular hematoma involves the gluteus medius and kun musculature measuring up to approximately 20 cm in length. No evidence of active extravasation on this phase of imaging. 2. No acute fracture or evidence of acute solid organ injury. ACT 112: Negative or not required by law. The above report was generated using voice recognition software. It may contain grammatical, syntax or spelling errors. Electronically signed by: Khoa Fofana M.D. 01/31/2024 7:20 PM Hip/Pelvis X-Ray 01/31/24 17:58 XR hip LT 2V w pelvis HISTORY: 38 years-old Male L hip pain s/p fall; trauma acute left hip pain status post fall COMPARISON: CT of same day TECHNIQUE: AP view of the pelvis with 2 views of the left hip FINDINGS: No acute fracture, dislocation or avascular necrosis. Soft tissue swelling of the lateral tissues. IMPRESSION: Soft tissue swelling without acute fracture or dislocation. ACT 112: Negative or not required by law. The above report was generated using voice recognition software. It may contain grammatical, syntax or spelling errors. Electronically signed by: Khoa Fofana M.D. 01/31/2024 6:28 PM
[2024-02-01 12:02] LABS: Hematocrit (blood only) 34.1 % (42.0-52.0); Hemoglobin 12.2 g/dl (14.0-18.0); Mean Corpuscular Hgb Conc 35.8 g/dL (32.0-36.0); Mean Corpuscular Volume 89.5 fL (80.0-100.0); Mean Platelet Volume 11.3 fL (9.4-12.4); Platelet Count 154 K/uL (130-400); RDW Coefficient of Variation 11.5 % (11.5-14.5); RDW Standard Deviation 37.3 fL (36.4-46.3); Red Blood Count 3.81 M/uL (4.70-6.10); White Blood Count 7.11 K/ul (4.8-10.8)
--- NOTE | 2024-02-01 13:57 | Hospitalist Progress Note ---
Date of Service February 01, 2024 Assessment & Plan (1) Traumatic hematoma of left lower leg: Plan: 38-year-old man chronically anticoagulated on warfarin for history of factor V Leiden and VTE's who fell on his left buttock 2 days prior to admission while on a hike. Next day he had abrupt increase in pain of left buttock as well as swelling. Found to have 20 cm gluteus muscle hematoma. Consulted orthopedics, reviewed recommendations in note continue conservative treatment for now, continue holding warfarin monitor hemoglobin symptoms and vital signs will reduce reduce frequency of hemoglobin checks, next 1 tonight then in the morning unless clinical status changes (2) Factor V Leiden: Plan: Hold warfarin for now agree holding 3 days seems prudent approach Admission and Anticipated Discharge Date Admission Date: January 31, 2024 Subjective continues to have pain in left buttock however he is tolerating ambulation and pain has not worsened Physical Exam 2 Physical Exam: PHYSICAL EXAMINATION Last 24h vital signs reviewed, see documentation in flowsheet General: Young well-appearing man who is ambulating in the hallway with a walker HEENT: Normocephalic, atraumatic, pupils round and equal, sclerae anicteric, no conjunctival injection, moist mucus membranes Lungs: Normal respiratory effort. Heart: deferred Abdomen: nondistended Extremities: Warm, dry, well-perfused. mild nonpitting right lower extremity edema. chronic since remote DVT in the past left buttock with some swelling some ecchymosis left lower flank that appears relatively mild Neuro: Alert and oriented x 4, face symmetric, moves 4 extremities well Psych: Normal affect and behavior Results & Data Results & Data Vital Signs (Past 12 Hours) Vital Signs Temp Pulse Pulse Pulse Resp BP Pulse Ox 02/01/24 12:01 37.0 C 81 18 118/75 98 02/01/24 07:29 37.1 C 74 18 108/74 97 02/01/24 07:11 71 02/01/24 04:18 36.8 C 71 16 113/79 97 O2 Del Method 02/01/24 12:01 Room Air 02/01/24 07:29 Room Air 02/01/24 07:11 02/01/24 04:18 Room Air Laboratory Results INR was 2.2 hemoglobin remained stable since yesterday 02/01/24 11:42 02/01/24 07:50 PG Care Time/CCT Total # of Minutes Spent Total Time Spent with Patient: Total time spent is greater than 50% in coordination of care (as documented) at patient's floor/unit and/or counseling patient: Coding Level of Care Code 92639 SUB INP/OBS CARE 235MIN Diagnoses Traumatic hematoma of left lower leg S80.12XA Factor V Leiden D68.51
[2024-02-02 07:05] LABS: Hematocrit (blood only) 33.9 % (42.0-52.0); Hemoglobin 12.1 g/dl (14.0-18.0); Mean Corpuscular Hemoglobin 31.9 pg (25.0-34.0); Mean Corpuscular Hgb Conc 35.7 g/dL (32.0-36.0); Mean Corpuscular Volume 89.4 fL (80.0-100.0); Mean Platelet Volume 11.4 fL (9.4-12.4); Platelet Count 156 K/uL (130-400); RDW Coefficient of Variation 11.5 % (11.5-14.5); RDW Standard Deviation 37.5 fL (36.4-46.3); Red Blood Count 3.79 M/uL (4.70-6.10); White Blood Count 6.39 K/ul (4.8-10.8)
[2024-02-02 07:31] LABS: INR 1.6 (0.9-1.1); Prothrombin Time 16.7 Seconds (9.0-12.0)
[2024-02-02 08:00] VITALS: RESP 16
[2024-02-02 12:06] VITALS: BP 115/73; TEMP 98.2; O2SAT 99
[2024-02-02 13:13] VITALS: PULSE 71
--- NOTE | 2024-02-03 15:38 | Discharge Summary ---
Discharge Summary Date of Service February 03, 2024 Principal Dx & Hospital Course #1 = Principal Diagnosis (1) Traumatic hematoma of left lower le-year-old man chronically anticoagulated on warfarin for history of factor V Leiden and VTE's who fell on his left buttock 2 days prior to admission while on a hike. Next day he had abrupt increase in pain of left buttock as well as swelling. Found to have 20 cm gluteus muscle hematoma. acute blood loss anemia due to bleeding into hematoma, present on admission initial Hg 13.8 then after fluids dropped to 12-12.5 where it remained stable Consulted orthopedics, reviewed recommendations in note, hold warfarin three days, follow up in ortho clinic in 2 weeks symptoms, vital signs and hemoglobin remained stable on serial checks continue conservative treatment, continue holding warfarin until Sunday/Sunday he plans to get INR check on Sunday, ordered hemoglobin check at that time qod iron supplement 1 month, follow up in primary care for resolution of anemia return precautions discussed (2) Factor V Leiden: chronically anticoagulated on warfarin held for hematoma Notes For Next Care Provider follow up in primary care for resolution of anemia hemoglobin and INR check Saturday 02/03 Medication Changes From Visit oral iron qod for one month Admission HPI Per Admitting Provider Dillan is a 38-year-old male with a past medical history significant for factor V Leiden with 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 Patient reportedly was hiking on 01/30/2024 and reportedly fell landing his left hip onto a [place]. He reportedly felt fine after the incident and had been able to ambulate without issue. He was walking earlier today while completing some errands when he had acute onset of left hip pain and ambulatory dysfunction. Patient remained stable in the ED. Labs were significant for hemoglobin of 13.8 (down from 16 as of 06/26/2020), INR of 2.3. X-ray of the left hip/pelvis noted soft tissue swelling but no acute trauma. CT of the abdomen pelvis with IV contrast was read as an acute intramuscular hematoma involving the gluteus medius and kun musculature measuring up to approximately 20 cm in length. No evidence of active extravasation. No acute fracture or evidence of acute solid organ injury. Patient was sitting in bed in no acute distress at time of exam. Confirms the above history. States that his first DVT and PE were approximately 12 years ago in the right lower extremity. States that it was an extensive DVT requiring Venojet procedure with Dr. Fritz. Patient was given a trial off anticoagulation after his initial blood clots were treated and he had recurrent DVT within the first week off anticoagulation. States that he took a dose of ibuprofen last night before going to bed. Last dose of warfarin was last evening. States his pain got acutely worse this afternoon while ambulating. Denies numbness, tingling, or pallor of left lower extremity. Pain is currently controlled. Discharge Exam PHYSICAL EXAMINATION Last 24h vital signs reviewed, see documentation in flowsheet General: appears well, has been ambulating in HW HEENT: Normocephalic, atraumatic, pupils round and equal, sclerae anicteric, no conjunctival injection, moist mucus membranes Lungs: Normal respiratory effort. Heart: deferred Abdomen: nondistended Extremities: Warm, dry, well-perfused. mild nonpitting right lower extremity edema. chronic since remote DVT in the past - unchanged left buttock with some minimal swelling some swelling and ecchymosis left lower flank that is stable Neuro: Alert and oriented x 4, face symmetric, moves 4 extremities well Psych: Normal affect and behavior Discharge Plan Discharge Items Patient Disposition: Home - Self-Care Reason For Visit: LEFT HIP HEMATOMA S/P FALL Discharge Diagnosis: Left hip hematoma Activity: Per Instructions section Non-emergency contact: Primary Care Provider Call non-emergency contact if: you have any medication questions and your symptoms worsen Follow-up/Referrals: Dillan Bae MD [Primary Care Provider] - (PLEASE CALL YOUR PRIMARY CARE PROVIDER TO SCHEDULE A HOSPITAL DISCHARGE FOLLOW-UP APPOINTMENT WITHIN 7-10 DAYS) Alexandre Palumbo MD [Physician] - Diet: Regular Ambulatory Orders: Hemoglobin (Routine) Timeframe: 1 Week Location: Determined by Patient Ordered By: Cintia Cevallos Attending Provider Instructions: You were treated for hematoma in left buttock muscles We held your warfarin and monitored your blood count. It seems to have stopped bleeding. The hematoma will flatten out and soften over time and you'll likely develop extensive purplish/yellow bruising that may track down your leg - this is just the old blood spreading out and your body will absorb it over time INR is 1.6 today You can your warfarin at usual dose tomorrow and let the INR level trend back up to therapeutic I put in a lab order so you can check your hemoglobin next time you go in for labs. Today's hemoglobin is 12.1 Return to the ED if you have signs of bleeding like significant increase in pain/swelling of buttock, lightheadedness/dizziness Take it easy for about two weeks with respect to activity - walking is fine, but avoid vigorous activity and stretching so you don't disturb the healing of the hematoma You may want to take an iron supplement for about a month to help resolve your anemia You can take ferrous sulfate 325 mg (65 mg of iron) every other day - you can buy this over the counter Follow up with Dr. Bae in 1-2 weeks to check on the hematoma and anemia Follow up with the [facility] ortho PA in 2 weeks It was a pleasure taking care of you in the hospital, Cintia Isaac MD Pending Studies at Discharge: No Stand-Alone Forms: My [facility] [employer], Smoking Cessation Medications and DC Order Prescriptions: New acetaminophen 325 mg Tablet 650 mg PO Q6H PRNQty: 0 0RF ferrous sulfate 325 mg (65 mg iron) tablet,delayed release (DR/EC) 325 mg PO Q OTHER DAY Qty: 1 0RF Rx Instructions: for apx one month. buy over the counter Continued warfarin 5 mg tablet 5 mg PO [id number] Discharge Orders: Discharge Order (Routine); Ordered 02/02/24 Ordered By: Cnitia Blunt/Other Patient Handouts: Bruises (Contusions), ED Hip Contusion Admission Data Admit Date/Time: 01/31/24 21:29 Attending Provider: Cintia Isaac Admit Provider: Lana Davis Primary Care Provider: Dillan Bae Other Providers: Lana Davis; Alexandre Palumbo Other Interventions: Discharge Summary Assessment (RN) Last Done: 02/02/24 13:10 Hospital Stay Data Consultations 01/31/24 21:28 ED Decision to Admit Stat 01/31/24 21:43 Consult Orthopedic Surgery Routine Diagnostic Imagining Performed 01/31/24 17:58 CT Abd and Pelvis [CT abd pelvis IV con only] Stat Pending Results Patient Have Any Pending Studies at Discharge: No Discharge Instructions Given to Patient (Per Discharging Provider) You were treated for hematoma in left buttock muscles We held your warfarin and monitored your blood count. It seems to have stopped bleeding. The hematoma will flatten out and soften over time and you'll likely develop extensive purplish/yellow bruising that may track down your leg - this is just the old blood spreading out and your body will absorb it over time INR is 1.6 today You can your warfarin at usual dose tomorrow and let the INR level trend back up to therapeutic I put in a lab order so you can check your hemoglobin next time you go in for labs. Today's hemoglobin is 12.1 Return to the ED if you have signs of bleeding like significant increase in pain/swelling of buttock, lightheadedness/dizziness Take it easy for about two weeks with respect to activity - walking is fine, but avoid vigorous activity and stretching so you don't disturb the healing of the hematoma You may want to take an iron supplement for about a month to help resolve your anemia You can take ferrous sulfate 325 mg (65 mg of iron) every other day - you can buy this over the counter Follow up with Dr. Bae in 1-2 weeks to check on the hematoma and anemia Follow up with the [facility] ortho PA in 2 weeks It was a pleasure taking care of you in the hospital, Cintia Isaac MD Total Time Total Time Spent Total Time Spent (In Minutes): <30 Coding Level of Care Code 91421 IN/OBS DISCH 30 MIN/LESS Diagnoses Traumatic hematoma of left lower leg S80.12XA Factor V Leiden D68.51
== END 2024-02-02 13:47 | disposition home or self-care (01) ==
LOC: 2N 17:17 → ED 17:17 → SUATTDRO 21:29 → 2N 23:13